=== PATIENT | female | born 1985 | race African-American/Black ===

== ENCOUNTER 2017-08-13 11:40 | Emergency (ER) | payer OTHER ==
[2017-08-13 11:57] VITALS: BP 116/84; TEMP 98.1; BMI 23.2
--- NOTE | 2017-08-13 12:10 | PDOC ---
History of Present Illness - General Chief Complaint: Pain Stated Complaint: ABD PAIN Time Seen by Provider: 08/13/17 12:10 - History of Present Illness Initial Comments: 08/13/17 14:48 Chief complaint: Inhalation of kitchen gas History of present illness: Yesterday the patient came home to her apartment and smelled the odor of gas. The supervisor mold cleaning and storage of the building was called and repaired a leak in the pipe. Later in the evening the patient began to feel some mild epigastric pain and nausea. Review of systems: No headache, chest pain, shortness of breath, vomiting or diarrhea. No visual or focal neurologic symptoms or unsteadiness of gait Past medical history: Healthy female, no active medical problems Social/family history reviewed and noncontributory. Physical exam: Alert and oriented 3, well-developed well-nourished, no acute distress, cheerful and cooperative. Specifically denies headache, visual or focal neurologic symptoms, or unsteadiness of gait Afebrile, vital signs normal No pallor or icterus. PERRLA, fundi benign, ENT clear Neck supple without bruit mass or nodes Chest clear with full breath sounds throughout bilaterally CV regular without murmur rub or gallop Abdomen benign Neurological C2 to 12 intact. Strength full and symmetric. No focal sensory or motor deficits. Gait stable and unimpaired Extremities no CCE Skin clear, no rash, adequate turgor and wet membranes Impression: Transient exposure to natural gas, no sign of toxicity or present, no respiratory distress Plan: Reassure. Recommended carbon monoxide detector fully apartment. To verify with superintendent measurement that the leak has been fixed and with the gas company to verify. Past History - Past Medical History Allergies/Adverse Reactions: Allergies Allergy/AdvReac Type Severity Reaction Status Date / Time No Known Allergies Allergy Verified 08/13/17 11:45 Home Medications: Ambulatory Orders NK [No Known Home Medication] 08/13/17 Other medical history: DENIES - Suicide/Smoking/Psychosocial Hx Smoking History: Never smoked Have you smoked in the past 12 months: No Information on smoking cessation initiated: No Hx Alcohol Use: No Drug/Substance Use Hx: No Substance Use Type: None *Physical Exam - Vital Signs Last Vital Signs Temp Pulse Resp BP Pulse Ox 98.1 F 108 H 20 116/84 100 08/13/17 11:40 08/13/17 11:40 08/13/17 11:40 08/13/17 11:40 08/13/17 11:40 *DC/Admit/Observation/Transfer Diagnosis at time of Disposition: Inhalation of gaseous substance Qualifiers: Encounter type: initial encounter Injury intent: accidental or unintentional Qualified Code(s): T59.91XA - Toxic effect of unspecified gases, fumes and vapors, accidental (unintentional), initial encounter - Discharge Dispostion Disposition: HOME Condition at time of disposition: Stable Admit: No - Patient Instructions Additional Instructions: Check with maintenance in building to make sure there is no gas leak that is persistent Install carbon monoxide detector for future monitoring. Return to ER if there are further symptoms. Otherwise check with your primary physician for follow-up
[2017-08-13 12:22] LABS: URINE APPEARANCE Clear; URINE BILIRUBIN Negative (NEGATIVE); URINE BLOOD Negative (NEGATIVE); URINE GLUCOSE (UA) Negative (NEGATIVE); URINE KETONE Negative (NEGATIVE); URINE LEUK ESTERASE Negative (NEGATIVE); URINE NITRITE Negative (NEGATIVE); URINE PROTEIN Negative (NEGATIVE); URINE UROBILINOGEN 0.2 (0.2-1.0)
[2017-08-13 12:23] LABS: URINE COLOR YELLOW
[2017-08-13 12:31] VITALS: PULSE 61
== END 2017-08-13 12:40 | disposition home or self-care (01) ==
LOC: FER 11:40
DX: T59.91XA Toxic effect of unspecified gases, fumes and vapors, accidental (unintentional), initial encounter (principal); X58.XXXA Exposure to other specified factors, initial encounter; Y93.89 Activity, other specified; Y92.000 Kitchen of unspecified non-institutional (private) residence as the place of occurrence of the external cause
CPT/HCPCS: 81003; 84703; 99283-25

== ENCOUNTER 2022-11-29 11:01 | Observation (INO) | payer OTHER ==
[2022-11-29 11:10] VITALS: BMI 26.2
[2022-11-29 13:27] LABS: BASO % 0.7 % (0-2.0); EOS % 1.9 % (0-4.5); HEMATOCRIT 36.4 % (32.4-45.2); HEMOGLOBIN 12.1 GM/dL (10.7-15.3); LYMPH % 39.2 % (8-40); MCHC 33.1 g/dl (32.0-36.0); MEAN CELL VOLUME 93.5 fl (80-96); MEAN PLT VOLUME 7.8 fl (7.5-11.1); NEUT % 49.2 % (42.8-82.8); PLATELET COUNT 333 10^3/uL (134-434); RBC 3.89 M/mm3 (3.60-5.2); RDW 14.9 % (11.6-15.6); WHITE BLOOD COUNT 5.6 K/mm3 (4.0-10.0)
[2022-11-29 13:50] LABS: CALCIUM 9.8 mg/dL (8.5-10.1)
[2022-11-29 13:51] LABS: ALBUMIN 3.9 g/dl (3.4-5.0); BLOOD UREA NITROGEN 7.3 mg/dL (7-18)
[2022-11-29 13:53] LABS: CREATININE 0.8 mg/dL (0.55-1.3)
[2022-11-29 13:55] LABS: BILIRUBIN,TOTAL 1.1 mg/dL (0.2-1); TOT PROT 7.7 g/dl (6.4-8.2)
[2022-11-29] MEDS ORDERED: ACETAMINOPHEN 325 MG TABLET (FP) PO PRN (16:43)
[2022-11-30 08:41] LABS: BASO % 1.1 % (0-2.0); EOS % 2.6 % (0-4.5); HEMOGLOBIN 12.2 GM/dL (10.7-15.3); LYMPH % 43.5 % (8-40); MCH 31.2 pg (25.7-33.7); MCHC 33.1 g/dl (32.0-36.0); MEAN CELL VOLUME 94.2 fl (80-96); MEAN PLT VOLUME 8.1 fl (7.5-11.1); MONO % 7.4 % (3.8-10.2); NEUT % 45.4 % (42.8-82.8); PLATELET COUNT 336 10^3/uL (134-434); RBC 3.93 M/mm3 (3.60-5.2); RDW 14.5 % (11.6-15.6); WHITE BLOOD COUNT 4.3 K/mm3 (4.0-10.0)
[2022-11-30 08:46] LABS: INR 1.11 (0.83-1.09); PROTHROMBIN TIME (PATIENT) 12.9 SEC (9.7-13.0)
[2022-11-30 08:49] LABS: ACTIVATED PTT 32.2 SECONDS (25.2-36.5)
[2022-11-30] MEDS: ENOXAPARIN NA (PORCINE) 40 MG/0.4 ML DISP.SYRIN SQ SCH (09:12)
[2022-11-30 09:15] LABS: PHOSPHOROUS 3.2 mg/dL (2.5-4.9)
[2022-11-30 09:17] LABS: TOT PROT 7.5 g/dl (6.4-8.2)
[2022-11-30 09:19] LABS: ALBUMIN 3.7 g/dl (3.4-5.0); BLOOD UREA NITROGEN 7.8 mg/dL (7-18); CALCIUM 9.5 mg/dL (8.5-10.1)
[2022-11-30 09:20] LABS: CREATININE 0.9 mg/dL (0.55-1.3)
[2022-11-30 09:27] LABS: N-TERMINAL BNP 56.9 pg/ml (5-125)
[2022-11-30 10:16] LABS: ERYTHROCYTE SEDIMENTATION RATE 11 mm/hr (0-20)
[2022-12-01 07:08] VITALS: RESP 18
[2022-12-01 08:23] LABS: BASO % 0.9 % (0-2.0); EOS % 3.4 % (0-4.5); HEMATOCRIT 39.9 % (32.4-45.2); HEMOGLOBIN 13.1 GM/dL (10.7-15.3); LYMPH % 52.7 % (8-40); MCH 30.8 pg (25.7-33.7); MCHC 32.8 g/dl (32.0-36.0); MEAN PLT VOLUME 8.1 fl (7.5-11.1); MONO % 10.5 % (3.8-10.2); NEUT % 32.5 % (42.8-82.8); PLATELET COUNT 323 10^3/uL (134-434); RBC 4.24 M/mm3 (3.60-5.2); RDW 15.2 % (11.6-15.6); WHITE BLOOD COUNT 3.5 K/mm3 (4.0-10.0)
[2022-12-01 08:29] VITALS: BP 94/70; PULSE 78; TEMP 98.6
[2022-12-01 08:47] LABS: CALCIUM 9.1 mg/dL (8.5-10.1)
[2022-12-01 08:48] LABS: MAGNESIUM 1.9 mg/dL (1.8-2.4)
[2022-12-01 08:49] LABS: ALBUMIN 3.8 g/dl (3.4-5.0)
[2022-12-01 08:50] LABS: BLOOD UREA NITROGEN 9.1 mg/dL (7-18)
[2022-12-01 08:51] LABS: CREATININE 0.8 mg/dL (0.55-1.3)
[2022-12-01 08:52] LABS: PHOSPHOROUS 3.6 mg/dL (2.5-4.9)
[2022-12-01 08:53] LABS: TOT PROT 7.5 g/dl (6.4-8.2)
[2022-12-01 08:55] LABS: BILIRUBIN,TOTAL 0.6 mg/dL (0.2-1)
[2022-12-01] MEDS ORDERED: ASPIRIN COATED 81 MG TABLET.EC PO SCH (10:00)
[2022-12-01] MEDS: ENOXAPARIN NA (PORCINE) 40 MG/0.4 ML DISP.SYRIN SQ SCH (10:38)
== END 2022-12-01 13:08 | disposition home or self-care (01) ==
LOC: JER 11:01 → JERBED 15:27 → J4W 11-30 01:24
PROVIDERS: ADMIT Internal Medicine; ATTEND Internal Medicine
DX: R94.31 Abnormal electrocardiogram [ECG] [EKG] (principal); R07.9 Chest pain, unspecified; R07.89 Other chest pain
CPT/HCPCS: 0241U-QW; 36415; 71046-TC-FY; 80053; 80061; 83735; 83880; 84100; 84443; 84484; 85025; 85379; 85610; 85651; 85730; 86140; 93005; 93010; 93306-TC; 93970-TC; 99285-25; G0378

== ENCOUNTER 2024-04-28 10:39 | Emergency (ER) | payer OTHER ==
[2024-04-28 10:51] VITALS: TEMP 98.9; BMI 25.4
[2024-04-28 11:59] LABS: BASO % 1.1 % (0-2.0); EOS % 1.9 % (0-4.5); HEMATOCRIT 42.5 % (32.4-45.2); HEMOGLOBIN 14.3 GM/dL (10.7-15.3); LYMPH % 38.5 % (8-40); MCH 33.9 pg (25.7-33.7); MCHC 33.6 g/dl (32.0-36.0); MEAN CELL VOLUME 100.7 fl (80-96); MONO % 9.7 % (3.8-10.2); NEUT % 48.8 % (42.8-82.8); PLATELET COUNT 325 10^3/uL (134-434); RBC 4.22 M/mm3 (3.60-5.2); RDW 13.6 % (11.6-15.6); WHITE BLOOD COUNT 4.3 K/mm3 (4.0-10.0)
[2024-04-28 12:06] LABS: INR 1.02 (0.83-1.09); PROTHROMBIN TIME (PATIENT) 11.5 SEC (9.7-13.0)
[2024-04-28 12:09] LABS: ACTIVATED PTT 31.3 SECONDS (25.2-36.5)
[2024-04-28 12:22] LABS: CHLORIDE 103 mmol/L (98-107); SODIUM 135 mmol/L (136-145)
[2024-04-28 12:24] LABS: ALBUMIN 4.1 g/dl (3.4-5.0); CALCIUM 9.4 mg/dL (8.5-10.1); CO2 27 mmol/L (21-32); GLUCOSE,RANDOM 76 mg/dL (74-106)
[2024-04-28 12:25] LABS: BLOOD UREA NITROGEN 7.7 mg/dL (7-18)
[2024-04-28 12:27] LABS: CREATININE 0.9 mg/dL (0.55-1.3); SGOT/AST 57 U/L (15-37); SGPT/ALT 21 U/L (13-61)
[2024-04-28 12:29] LABS: ALK PHOS 66 U/L (45-117); BILIRUBIN,TOTAL 1.4 mg/dL (0.2-1)
[2024-04-28 12:32] LABS: ANION GAP 5 mmol/L (4-13); POTASSIUM 6.2 mmol/L (3.5-5.1)
[2024-04-28 13:23] LABS: BLOOD UREA NITROGEN 7.5 mg/dL (7-18); CALCIUM 9.6 mg/dL (8.5-10.1)
[2024-04-28 13:25] LABS: CREATININE 0.8 mg/dL (0.55-1.3)
[2024-04-28 13:59] VITALS: BP 110/71; PULSE 53; RESP 17
== END 2024-04-28 14:45 | disposition home or self-care (01) ==
LOC: JER 10:39
DX: R07.89 Other chest pain (principal); R53.1 Weakness; R42 Dizziness and giddiness; R53.83 Other fatigue; R05.9 Cough, unspecified; R06.02 Shortness of breath; Z20.822 Contact with and (suspected) exposure to COVID-19
CPT/HCPCS: 0241U-QW; 36415; 71046-TC-FY; 80048; 80053; 84439; 84443; 84484; 84703; 85025; 85379; 85610; 85730; 93005; 93010; 99285-25